=== PATIENT | female | born 1965 | race Caucasian/White ===

== ENCOUNTER 2025-02-19 07:56 | Outpatient (AMB) | payer OTHER, SELFPAY ==
--- NOTE | 2025-02-19 08:02 | MHC.OFFVIS ---
Vital Signs 02/19/25 08:08 Height 5 ft 4 in Weight 120 lb BMI 20.6 BP 154/72 H Blood Pressure Location Rt brachial Position Sitting Pulse 88 Pulse Source Pulse Oximeter Pulse Oximetry (%) 97 Oxygen Delivery Method Room Air Intake Visit Reasons: Colonoscopy Screening Intake Note: NEW PATIENT for repeat colo screening. Chief Complaint; Pt denies any GI sx or concerns at this time. Billing Representative Required: No Accompanied by: Self / Same As Patient Allergies No Known Allergies Allergy (Verified 02/19/25 08:03) HPI HPI Colonoscopy Screening: Details: 59 year old? female with past medical history of hyperlipidemia, migraine headache, history of tubular adenoma in 2019 is here today for pre colonoscopy screening.? Patient was sent to us by her PCP.? Last colonoscopy in 2019 sigmoid colon polypectomy showed tubular adenoma.? Patient denies any gastrointestinal symptoms in the past or at present.? Denies any personal or family history of gastrointestinal disease, colon polyps, or CRC.? Denies history of difficulty with sedation or anesthesia in the past.? Negative for history of sleep apnea.? Denies any history of cardiac, renal, pulmonary, or hepatic disease.?? No history of infectious? diseases like hepatitis A, B, C, HIV or tuberculosis.? Patient is not on any anticoagulation [facility] Medical History (Updated 02/19/25 @ 08:13 by Pamela Talley [facility]) Tubular adenoma Migraine Family history of breast cancer Family history of colon cancer Recurrent cold sores Thyromegaly HLD (hyperlipidemia) Surgical History [place] teeth removed Previous section S/P colonoscopy History of right knee surgery Social History Alcohol intake: never Patient Tobacco Use Status: Never used Tobacco Use of substances other than those prescribed or required for medical reasons: No Review of Systems Const Denies weight gain and Denies weight loss ENT Reports no additional complaints, Denies dysphagia and Denies odynophagia Card Reports no additional complaints Resp Reports no additional complaints GI Denies abdominal pain, Denies belching, Denies melena, Denies bloating, Denies change in bowel habits, Denies dysphagia, Denies excessive flatus, Denies dyspepsia, Denies heartburn, Denies diarrhea, Denies loose stools, Denies nausea, Denies odynophagia and Denies vomiting Musc Reports no additional complaints Neuro Reports no additional complaints Psych Reports no additional complaints Endo Reports no additional complaints Physical Exam Const General: healthy appearing, no acute distress and well developed Nutritional Appearance: well nourished Orientation/consciousness: patient oriented x3 Resp Effort & Inspection: normal respiratory effort, able to speak in complete sentences, no tracheal deviation and symmetric chest movement Auscultation: clear to auscultation bilaterally Cardio Rate: regular rate GI Inspection: Yes normal to inspection and No distended Palpation (GI): Soft to palpation, not firm, nontender and No hepatosplenomegaly present Auscultation: normal bowel sounds General: Yes no CVA tenderness Back/Spine/Pelvis Back: no CVA tenderness Skin General skin exam: elasticity normal, turgor normal and dry skin Neuro General: patient oriented x3 Psych Appearance: grossly normal Mental Status: mental status grossly normal Assessment & Plan Assessment & Plan (1) Family history of colon cancer: Code(s): Z80.0 - Family history of malignant neoplasm of digestive organs Category: Medical (2) Screen for colon cancer: Code(s): Z12.11 - Encounter for screening for malignant neoplasm of colon Plan Patient denies any GI, cardiac or respiratory symptoms.? Denies any issues with anesthesia in the past.? Denies any history of sleep apnea.? No history infectious diseases in the past or present.? Not on any anticoagulation therapy.? Personal history of tubular adenoma. Family history of CRC, patient's dad at age 58 from colon cancer. Patient denies melena, hematochezia, unintentional weight loss or ribbon like stools.? Discussed at length the pre-procedure,? prep, diet & medications as well as what to expect prior, during and after the procedure.?? Stressed the importance of good bowel prep.? Recommended the use of Vaseline or Calmoseptine OTC & baby wipes with bowel movements to promote comfort.? ?Patient verbalizes understanding and agrees to plan of care.? She was given the opportunity to ask questions and all questions answered.? We will see her after the procedure.? Medications: New bisacodyl (Dulcolax (bisacodyl)) take 4 tabs at noon the day before your colonoscopy 20 mg (4 x 5 mg) PO ONCE 1 day 4 tabs 0RF Z12.11 - Encounter for screening for malignant neoplasm of colon polyethylene glycol 3350 (Miralax) As directed by gastroenterology department at [facility] 238 grams PO ONCE 238 grams 0RF Z12.11 - Encounter for screening for malignant neoplasm of colon Coding Level of Care Code New Pt Level 3 (17600) Diagnoses Family history of colon cancer Z80.0 Screen for colon cancer Z12.11 Time Spent (min) 40 Comment 30 minutes spent with patient and additional 10 minutes spent reviewing her records
[2025-02-19 08:08] VITALS: BP 154/72; PULSE 88; O2SAT 97; BMI 20.6
== END 2025-02-19 08:38 | disposition home or self-care (01) ==
LOC: HO.HGI 07:56
PROVIDERS: PCP Nurse Practitioner Primary Care; Visit Provider Nurse Practitioner Family
DX: Z01.818 Encounter for other preprocedural examination (principal); Z12.11 Encounter for screening for malignant neoplasm of colon; Z80.0 Family history of malignant neoplasm of digestive organs
CPT/HCPCS: S0285

== ENCOUNTER 2025-06-03 10:21 | Day surgery (SDC) | payer OTHER, SELFPAY ==
[2025-05-30 15:15] VITALS: BMI 20.6
--- NOTE | 2025-05-31 10:12 | P.CONAN_ITS ---
Documented by User: Kristal Floyd NP 05/31/25 10:12 HPI - Anesthesia Eval Consult details Narrative: 60yo F for Colonoscopy [facility] Active Problems Active Problems: All Active Problems Family history of colon cancer (Acute) Past Medical History Medical History (Updated 06/03/25 @ 10:36 by Kristin Gonzalez, RN) Mitral valve prolapse Tubular adenoma Migraine Family history of breast cancer Family history of colon cancer Recurrent cold sores Thyromegaly HLD (hyperlipidemia) Surgical History Surgical History [place] teeth removed Previous section S/P colonoscopy History of right knee surgery Social History Social History Alcohol intake: never Patient Tobacco Use Status: Never used Tobacco Use of substances other than those prescribed or required for medical reasons: No Are you DNR?: No Advance Directives: No Advance Directives Information Provided: Yes Meds Allergies Allergy/AdvReac Type Severity Reaction Status Date / Time No Known Allergies Allergy Verified 06/03/25 10:59 Home Medications ?Medication ?Instructions ?Recorded ?Confirmed ?Last Taken ?Type ascorbic acid (vitamin C) 1,000 mg 1 g PO DAILY Unknown History tablet cholecalciferol (vitamin D3) 125 125 mcg PO DAILY 01/16 03/10 Unknown History mcg (5,000 unit) capsule elderberry fruit 350 mg capsule mg PO 02/08/25 Unknow n History multivitamin 1 tab PO DAILY 02/08/25 Unk nown History atorvastatin 40 mg tablet 40 mg PO DAILY 02/19/25 Unk nown History valacyclovir 1 gram tablet 4,000 mg PO ONCE PRN Cold S ores 02/19/25 Unknown History Exam Height,Weight and Vital Signs: Height 5 ft 4 in Weight 54.431 kg Assessment and Plan Assessment Anesthesia Assessment: Chart Reviewed Documented by User: Thad Zarate MD 06/03/25 12:06 [facility] Past Medical History Medical History (Updated 06/03/25 @ 10:36 by Kristin Gonzalez, RN) Mitral valve prolapse Tubular adenoma Migraine Family history of breast cancer Family history of colon cancer Recurrent cold sores Thyromegaly HLD (hyperlipidemia) Surgical History Surgical History [place] teeth removed Previous section S/P colonoscopy History of right knee surgery Social History Social History Alcohol intake: never Patient Tobacco Use Status: Never used Tobacco Use of substances other than those prescribed or required for medical reasons: No Are you DNR?: No Advance Directives: No Advance Directives Information Provided: Yes Meds Allergies Allergy/AdvReac Type Severity Reaction Status Date / Time No Known Allergies Allergy Verified 06/03/25 10:59 Home Medications ?Medication ?Instructions ?Recorded ?Confirmed ?Last Taken ?Type ascorbic acid (vitamin C) 1,000 mg 1 g PO DAILY Unknown History tablet cholecalciferol (vitamin D3) 125 125 mcg PO DAILY 01/16 03/10 Unknown History mcg (5,000 unit) capsule elderberry fruit 350 mg capsule mg PO 02/08/25 Unknow n History multivitamin 1 tab PO DAILY 02/08/25 Unk nown History atorvastatin 40 mg tablet 40 mg PO DAILY 02/19/25 Unk nown History valacyclovir 1 gram tablet 4,000 mg PO ONCE PRN Cold S ores 02/19/25 Unknown History Exam Airway Mallampati Class: II TM Dist: >3cm Neck ROM: Full Loose/Missing/Broken Teeth: No Heart: RRR Lungs: Cta Assessment and Plan Assessment Anesthesia Assessment: Anesthesia Plan Discussed Final Anesthetic Review ASA Class: II Patient Risk: Low Procedure Risk: Low Anesthetic Plan Anesthetic Plan: MAC: Disposition: Standard PACU
[2025-06-03 10:37] VITALS: BMI 19.2
[2025-06-03 10:41] VITALS: BP 136/74; PULSE 104; RESP 15; TEMP 36.6; O2SAT 97
[2025-06-03] MEDS: Lactated Ringers 1,000 ML 100 ML IVCONT (10:58)
--- NOTE | 2025-06-03 11:21 | MHC.SHP ---
Pre-Procedural Eval Section A - 24 Hr Update-Section A only Date of Service: 06/03/25 Section B - Complete if H&P > 30 days Chief Complaint: Surveillance of colon polyps Relevant Family History (Specify if Yes): Yes Relevant Social History: None Present Medications: see Short Stay Collaborative assessment Medical History: Significant History (Migraine Family history of breast cancer Family history of colon cancer Recurrent cold sores Thyromegaly HLD (hyperlipidemia)) History of Previous Operations: Relevant previous surgery/procedure and date(s) (Migraine Family history of breast cancer Family history of colon cancer Recurrent cold sores Thyromegaly HLD (hyperlipidemia)) Allergies: Allergies Allergy/AdvReac Type Severity Reaction Status Date / Time No Known Allergies Allergy Verified 06/03/25 10:59 Review of Systems Sugical H&P ROS: Negative: Constitution, Cardiovascular, Respiratory and Gastrointestinal Exam Surgical H&P Exam: Normal: Heart, Normal: Lungs, Normal: Extremities and Normal: Abdomen Plan Diagnosis/Plan: Unchanged I have reviewed the history and physical and performed a pertinent physical examination on my patient. No changes have occurred unless specified. Time Spent With Patient Time: Total time managing care of this patient today ____ minutes.
[2025-06-03 12:56] VITALS: BP 126/60; PULSE 84; RESP 15; TEMP 36.6; O2SAT 96
--- NOTE | 2025-06-03 12:58 | P.OPN-COLO_ITS ---
Colonoscopy Operative Note Operative Note Date of Service: 06/03/25 Narrative: COLONOSCOPY TILL CECUM Pre-op diagnosis: Surveillance for colon polyps, family history of cancer. Post-op diagnosis:? Diverticulosis, hemorrhoids Endoscopist:? Catherine Resendiz MD Anesthesia:?MAC Consent: Indications for the procedure and potential complications of bleeding, perforation, reaction to medications and missed diagnosis were discussed with the patient and informed consent was obtained. Instrument: Olympus PCF H 190 L variable stiffness pediatric colonoscope Monitoring: Vital signs and clinical assessment, intermittent blood pressure monitoring, continuous EKG monitoring, Pulse oximetry and Carbon Dioxide monitoring were done throughout the procedure. Please see anesthesia flowsheet. Colon withdrawl time was 18 minutes. Procedure: The patient was placed in the left lateral decubitis position and pre-procedure medications were administered. After a digital rectal examination of the ano-rectum, the video colonoscope was inserted into the rectum and advanced through the colon to the cecum. The colonoscope was slowly withdrawn in a retrograde panoramic fashion and the colon mucosa was carefully examined including a retroflexed view of the rectum. Findings and interventions are described below. Procedure Difficulty: Colon was long and tortuous and there was some loop formation Findings: Terminal Ileum: Not evaluated Cecum: Normal Ascending Colon: Normal Transverse Colon: Normal Descending Colon: Normal Sigmoid Colon: Moderate diverticulosis Rectum: Normal Ano-rectum: Small internal hemorrhoids Colon preparation: Excellent, after some irrigation. [place] Bowel Preparation Scale Right colon; 3 Transverse colon: 3 Left colon; 3 (0 = Unprepared colon segment with mucosa not seen due to solid stool that cannot be cleared. 1 = Portion of mucosa of the colon segment seen, but other areas of the colon segment not well seen due to staining, residual stool and/or opaque liquid. 2 = Minor amount of residual staining, small fragments of stool and/or opaque liquid, but mucosa of colon segment seen well. 3 = Entire mucosa of colon segment seen well with no residual staining, small fragments of stool or opaque liquid) Impression and Post Procedure Diagnosis: Colonoscopy Findings: No polyps were detected Moderate diverticulosis seen in the sigmoid colon Small hemorrhoids on retroflexed exam. Plan: Repeat Colonoscopy in 5 years due to history of colon polyps and family history of colon cancer. Above findings were reviewed with the patient and relevant handouts were given and the discharge area. Patient was placed on the colonoscopy recall list for repeat colonoscopy in 5 years.
[2025-06-03 13:00] VITALS: BP 136/65; RESP 16; O2SAT 96
== END 2025-06-03 13:34 | disposition home or self-care (01) ==
PROVIDERS: PCP Nurse Practitioner Primary Care; Visit Provider Internal Medicine Gastroenterology
PROC: 0DJD8ZZ Inspection of Lower Intestinal Tract, Via Natural or Artificial Opening Endoscopic (ICD-10-PCS; CPT 45378; principal; 2025-06-03 12:00)
DX: Z12.11 Encounter for screening for malignant neoplasm of colon (principal); K56.2 Volvulus; K57.30 Diverticulosis of large intestine without perforation or abscess without bleeding; K64.8 Other hemorrhoids; Z86.0101 Personal history of adenomatous and serrated colon polyps; Z80.0 Family history of malignant neoplasm of digestive organs; E78.5 Hyperlipidemia, unspecified; Z79.899 Other long term (current) drug therapy
CPT/HCPCS: 45378; J2003; J2704

== ENCOUNTER → 2025-06-03 10:21 | Outpatient (BNV) | payer OTHER, SELFPAY | PROVIDERS: PCP Nurse Practitioner Primary Care; Visit Provider Internal Medicine Gastroenterology | DX: Z12.11 Encounter for screening for malignant neoplasm of colon (principal); K57.30 Diverticulosis of large intestine without perforation or abscess without bleeding; K64.8 Other hemorrhoids; Z80.0 Family history of malignant neoplasm of digestive organs | CPT/HCPCS: 45378 ==